=== PATIENT | female | born 1945 | race Caucasian/White ===

== ENCOUNTER 2018-09-03 18:53 | Inpatient (IN) | payer MEDICARE, BC ==
[~2018-09-03] VITALS: Ht 154.9 cm; Wt 66.1 kg
[2018-09-03 19:29] LABS: BASOPHILS # (AUTO) 0.03 x10^3/uL (0-0.1); BASOPHILS % (AUTO) 1 % (0-1); EOSINOPHILS # (AUTO) 0.19 x10^3/uL (0-0.4); EOSINOPHILS % (AUTO) 4 % (1-7); LYMPHOCYTES # (AUTO) 1.88 x10^3/uL (1-3.4); LYMPHOCYTES % (AUTO) 38 % (22-44); MD NO; MEAN CORPUSCULAR HEMOGLOBIN 31.7 pg (27.0-34.8); MEAN CORPUSCULAR HGB CONC 33.7 g/dL (32.4-35.8); MEAN CORPUSCULAR VOLUME 93.9 fL (80-100); MEAN PLATELET VOLUME 7.5 fL (7.4-10.4); MONOCYTES # (AUTO) 0.58 x10^3/uL (0.2-0.8); MONOCYTES % (AUTO) 12 % (2-9); NEUTROPHILS # (AUTO) 2.32 x10^3/uL (1.8-6.8); NEUTROPHILS % (AUTO) 46 % (42-75); PLATELET COUNT 303 x10^3/uL (130-400); RED BLOOD COUNT 3.75 x10^6/uL (3.82-5.3); RED CELL DISTRIBUTION WIDTH 13.8 % (9.6-15.2)
[2018-09-03] MEDS ORDERED: MAALOX/HYOSCYAMINE/LIDOCAINE 45 ML BTL PO ONE (19:30)
[2018-09-03 19:39] LABS: ALBUMIN 3.6 g/dL (3.4-5.0); ANION GAP 5 mmol/L (5-15); CHLORIDE 107 mmol/L (98-107); CREATININE 1.16 mg/dL (0.55-1.02)
[2018-09-03 19:43] LABS: TROPONIN I 0.017 ng/mL (0.000-0.045)
[2018-09-03 22:15] LABS: TROPONIN I 0.708 ng/mL (0.000-0.045)
[2018-09-03] MEDS ORDERED: ASPIRIN 81 MG TABLET CHEW PO ONE (22:30)
[2018-09-03] MEDS ORDERED: PROMETHAZINE 25 MG/ML, 1ML IM PRN (22:30)
[2018-09-03] MEDS ORDERED: ONDANSETRON ODT 4 MG PO PRN (22:30)
[2018-09-03] MEDS ORDERED: BISACODYL 10 MG SUPP PR PRN (22:30)
[2018-09-03] MEDS ORDERED: morphine SULFATE 10 MG/ML, 1ML IVPush PRN (22:30)
[2018-09-03] MEDS ORDERED: NITROGLYCERIN SINGLE TAB 0.4 MG SL PRN (22:30)
[2018-09-03] MEDS ORDERED: FAMOTIDINE 20 MG/2 ML IVPush SCH (22:30)
[2018-09-03] MEDS ORDERED: NITROGLYCERIN 0.4 MG BOTTLE (25 TABS) SL PRN (22:30)
[2018-09-03] MEDS ORDERED: HEPARIN 5,000 UNITS/ML, 1ML SQ SCH (22:30)
[2018-09-03] MEDS ORDERED: ONDANSETRON 2MG/ML, 2ML IVPush ONE (22:30)
[2018-09-03] MEDS ORDERED: hydrALAzine 20 MG/ML, 1ML IVPush PRN (22:30)
[2018-09-03] MEDS ORDERED: LABETALOL 5MG/ML, 20ML IVPush PRN (22:30)
[2018-09-03] MEDS ORDERED: ONDANSETRON 2MG/ML, 2ML IVPush PRN (22:30)
[2018-09-03] MEDS ORDERED: POLYETHYLENE GLYCOL 17 GM PACKET PO PRN (22:30)
[2018-09-03] MEDS ORDERED: MORPHINE SULFATE 4 MG/ML, 1ML IVPush PRN (22:30)
[2018-09-03] MEDS ORDERED: ACETAMINOPHEN 325 MG TABLET PO PRN (22:30)
[2018-09-03] MEDS ORDERED: SODIUM CHLORIDE FLUSH 10ML SYR IVF ONE (22:30)
[2018-09-03] MEDS ORDERED: DOCUSATE 100 MG CAPSULE PO PRN (22:30)
[2018-09-03] MEDS ORDERED: CYCLOBENZAPRINE 10 MG TABLET PO PRN (22:30)
[2018-09-03] MEDS ORDERED: HYDROcodone/APAP 5/325 TABLET PO PRN (22:30)
[2018-09-03 22:39] LABS: INTERNATIONAL NORMALIZED RATIO 0.97 (0.93-1.1)
[2018-09-03] MEDS ORDERED: BUSP5TAB2 PO (22:58)
[2018-09-03] MEDS ORDERED: BUSP10TA PO (22:58)
[2018-09-03] MEDS ORDERED: LISI-424 PO (22:58)
[2018-09-03 23:05] LABS: FREE T4 (FREE THYROXINE) 0.99 ng/dL (0.76-1.46); THYROID STIMULATING HORMONE 7.84 mIU/L (0.358-3.740)
[2018-09-03 23:16] VITALS: BP 160/86
[2018-09-03 23:19] LABS: HEMOGLOBIN A1C 5.6 % (4.2-6.3)
[2018-09-03] MEDS: SODIUM CHLORIDE 0.9% 1,000 ML IV SCH (23:41)
[2018-09-03] MEDS: PANTOPRAZOLE 40 MG IV IVPush SCH (23:42)
[2018-09-04 01:01] LABS: MICROSCOPIC AUTO
[2018-09-04 01:02] LABS: CULTURE INDICATED? YES
[2018-09-04 02:51] VITALS: BP 114/69
[2018-09-04 03:45] LABS: BASOPHILS # (AUTO) 0.04 x10^3/uL (0-0.1); BASOPHILS % (AUTO) 1 % (0-1); EOSINOPHILS # (AUTO) 0.19 x10^3/uL (0-0.4); EOSINOPHILS % (AUTO) 4 % (1-7); LYMPHOCYTES # (AUTO) 2.24 x10^3/uL (1-3.4); LYMPHOCYTES % (AUTO) 41 % (22-44); MD NO; MEAN CORPUSCULAR HEMOGLOBIN 30.7 pg (27.0-34.8); MEAN CORPUSCULAR VOLUME 93.1 fL (80-100); MEAN PLATELET VOLUME 7.4 fL (7.4-10.4); MONOCYTES # (AUTO) 0.54 x10^3/uL (0.2-0.8); MONOCYTES % (AUTO) 10 % (2-9); NEUTROPHILS # (AUTO) 2.48 x10^3/uL (1.8-6.8); NEUTROPHILS % (AUTO) 45 % (42-75); PLATELET COUNT 274 x10^3/uL (130-400); RED BLOOD COUNT 3.66 x10^6/uL (3.82-5.3); RED CELL DISTRIBUTION WIDTH 14.5 % (9.6-15.2)
[2018-09-04 03:55] LABS: ALANINE AMINOTRANSFERASE 21 U/L (12-78); ALBUMIN 3.1 g/dL (3.4-5.0); ANION GAP 7 mmol/L (5-15); CALCIUM 8.3 mg/dL (8.5-10.1); CHLORIDE 112 mmol/L (98-107); CHOLESTEROL, TOTAL 203 mg/dL (140-239); CREATININE 1.15 mg/dL (0.55-1.02)
[2018-09-04 04:00] LABS: ALKALINE PHOSPHATASE 51 U/L (45-117); BILIRUBIN,TOTAL 0.3 mg/dL (0.2-1.0); CHOL/HDL RATIO 3.4; HDL CHOL % 29 % (28-40); HDL CHOLESTEROL (DIRECT) 59 mg/dL (40-60); LDL CHOLESTEROL,CALCULATED 128 mg/dL (54-169); LDL/HDL RATIO 2.2 (0.5-3.0); TOTAL PROTEIN 6.4 g/dL (6.4-8.2); TRIGLYCERIDES 80 mg/dL (50-200); VLDL CHOLESTEROL 16 mg/dL (0-25)
[2018-09-04] MEDS ORDERED: HEPARIN 25,000 UNITS/500ML PMX 500 ML IV PRN (04:30)
[2018-09-04] MEDS ORDERED: HEPARIN 5,000 UNITS/ML, 1ML IV PRN (04:30)
[2018-09-04] MEDS: ASPIRIN 325 MG TABLET EC PO SCH (05:21)
[2018-09-04 07:08] VITALS: BP 137/74
[2018-09-04] MEDS: LISINOPRIL 5 MG TABLET PO SCH (09:07)
[2018-09-04] MEDS ORDERED: SODIUM CHLORIDE 0.9% 1,000 ML IV ONE (09:28)
[2018-09-04] MEDS: SODIUM CHLORIDE 0.9% 1,000 ML IV SCH (09:32)
[2018-09-04] MEDS: PANTOPRAZOLE 40 MG IV IVPush SCH ×2 (12:21→23:42)
[2018-09-04 13:03] VITALS: BP 138/74
[2018-09-04] MEDS ORDERED: FENTANYL PF 100 MCG/2ML ONE (16:10)
[2018-09-04] MEDS ORDERED: PRASUGREL 10 MG TABLET ONE (16:10)
[2018-09-04] MEDS ORDERED: VERAPAMIL 2.5 MG/ML, 2ML ONE (16:10)
[2018-09-04] MEDS ORDERED: MIDAZOLAM 1 MG/ML, 2ML ONE (16:10)
[2018-09-04] MEDS ORDERED: HEPARIN 1,000 UNITS/ML, 10ML ONE (16:11)
[2018-09-04] MEDS ORDERED: BIVALIRUDIN 250 MG ONE (16:11)
[2018-09-04] MEDS ORDERED: LIDOCAINE-MPF 1%, 5ML ONE (16:44)
[2018-09-04] MEDS ORDERED: SODIUM CHLORIDE 0.9% 1,000 ML IV SCH (17:11)
[2018-09-04 20:22] VITALS: BP 101/65
[2018-09-04] MEDS ORDERED: ATORVASTATIN 40 MG TABLET PO SCH (21:00)
[2018-09-05 02:28] VITALS: BP 108/67
[2018-09-05 05:19] LABS: ANION GAP 8 mmol/L (5-15); CALCIUM 8.2 mg/dL (8.5-10.1); CHLORIDE 113 mmol/L (98-107); CREATININE 1.01 mg/dL (0.55-1.02)
[2018-09-05] MEDS: ASPIRIN 325 MG TABLET EC PO SCH (05:47)
[2018-09-05 06:43] VITALS: BP 117/74
[2018-09-05] MEDS: LISINOPRIL 5 MG TABLET PO SCH (08:49)
[2018-09-05] MEDS ORDERED: CLOPIDOGREL 75 MG TABLET PO SCH (09:00)
[2018-09-05] MEDS ORDERED: ASPI-621 PO (10:14)
[2018-09-05] MEDS ORDERED: ATOR40TA78 PO (10:14)
[2018-09-05] MEDS ORDERED: CLOP75TA PO (10:14)
[2018-09-05] MEDS: PANTOPRAZOLE 40 MG IV IVPush SCH (10:31)
[2018-09-05 13:03] VITALS: BP 103/62
[2018-09-06] MEDS ORDERED: ASPIRIN 81 MG TABLET EC PO SCH (06:00)
== END 2018-09-05 17:30 | disposition home or self-care (01) | DRG 280 ==
LOC: ED 19:45 → EDIP 22:24 → 5SO 23:18 → DCLOUNGE 09-05 17:05
PROVIDERS: ADMIT Internal Medicine; ATTEND Family Medicine
PROC: 4A023N7 Measurement of Cardiac Sampling and Pressure, Left Heart, Percutaneous Approach (ICD-10-PCS; principal; 2018-09-04)
PROC: B2111ZZ Fluoroscopy of Multiple Coronary Arteries using Low Osmolar Contrast (ICD-10-PCS; 2018-09-04)
PROC: B2151ZZ Fluoroscopy of Left Heart using Low Osmolar Contrast (ICD-10-PCS; 2018-09-04)
DX: I21.4 Non-ST elevation (NSTEMI) myocardial infarction (principal); N17.0 Acute kidney failure with tubular necrosis; F41.1 Generalized anxiety disorder; H35.30 Unspecified macular degeneration; I10 Essential (primary) hypertension; K21.9 Gastro-esophageal reflux disease without esophagitis; K44.9 Diaphragmatic hernia without obstruction or gangrene; Z79.899 Other long term (current) drug therapy; Z87.11 Personal history of peptic ulcer disease; Z87.891 Personal history of nicotine dependence; Z88.8 Allergy status to other drugs, medicaments and biological substances
CPT/HCPCS: 36415; 71045; 80048; 80053; 80061; 81001; 82040; 83036; 83735; 84439; 84443; 84484; 85025; 85520; 85610; 85730; 87077; 87086; 87186; 93005; 93458; 99156; 99285; C1769; C1894; C8929; G0378; J0583; J1644; J2250; J3010; C9113; J7030; Q9967